=== PATIENT | female | born 1975 | race African-American/Black ===

== ENCOUNTER 2018-09-20 20:01 | Emergency (ER) | payer OTHER ==
[~2018-09-20] VITALS: Ht 167.6 cm; Wt 74.4 kg
--- NOTE | 2018-09-20 20:30 | NUR ---
PT BIBFAMILY C/O DIZZY/WEAK X 1 HOURS. PATIENT STATES AN HOUR AGO SHE HAD A PERIOD OF FEELING "CONFUSED". AOX4 AT THIS TIME. DENIES PAIN AT THIS TIME. NAD NOTED. RESP EVEN AND UNLABORED. FAMILY AT BEDSIDE. PT ON MONITOR IN BED 11. WILL CONTINUE TO MONITOR.
[2018-09-20] MEDS ORDERED: IV NS 0.9% 1,000 ML BAG IV ONE (21:00)
--- NOTE | 2018-09-20 21:00 | NUR ---
BLOOD DRAWN AND GIVEN TO LAB
--- NOTE | 2018-09-20 21:08 | NUR ---
TECH AT BEDSIDE FOR EKG
[2018-09-20 21:13] LABS: BASOPHILS % (AUTO) 0.7 % (0.0-2.0); EOSINOPHILS % (AUTO) 2.9 % (0.0-6.0); HEMATOCRIT 39 % (33-45); LYMPHOCYTES # (AUTO) 1.6 /CMM (0.8-4.8); LYMPHOCYTES % (AUTO) 29.5 % (20.0-44.0); MEAN CORPUSCULAR HGB CONC 34 g/dl (31.0-36.0); MEAN CORPUSCULAR VOLUME 91 fL (82-100); MONOCYTES # (AUTO) 0.5 /CMM (0.1-1.30); MONOCYTES % (AUTO) 9.1 % (2.0-12.0); NEUTROPHILS # (AUTO) 3.2 /CMM (1.8-8.9); NEUTROPHILS % (AUTO) 57.8 % (43.0-81.0); PLATELET COUNT (AUTO) 165 /CMM (150-450); WHITE BLOOD COUNT (AUTO) 5.6 K/uL (4.3-11.0)
[2018-09-20 21:24] LABS: CALCIUM, SERUM 9.2 mg/dL (8.5-10.1); CREATININE 0.8 mg/dL (0.6-1.3); POTASSIUM 3.9 mmol/L (3.5-5.1)
[2018-09-20 22:59] VITALS: BP 121/79
--- NOTE | 2018-09-20 23:34 | NUR ---
IV removed. Catheter intact and site benign. Pressure and 4x4 applied to site. No bleeding noted.Patient discharged to home in stable condition. Written and verbal after care instructions given. Patient verbalizes understanding of instruction. PT AMBULATORY WITH STEADY GAIT.
== END 2018-09-20 23:37 | disposition home or self-care (01) ==
LOC: ER 20:02
DX: R53.1 Weakness (principal); R42 Dizziness and giddiness; K21.9 Gastro-esophageal reflux disease without esophagitis; Z98.890 Other specified postprocedural states
CPT/HCPCS: 36415; 80048; 85025; 93005; 96360; 99284; J7030